=== PATIENT | male | born 1975 | race Caucasian/White ===

== ENCOUNTER 2019-05-19 12:57 | Emergency (ER) | payer SELFPAY ==
[2019-05-19] MEDS ORDERED: ISOVUE-370 76%-LOCM 1 ML ONE (13:49)
[2019-05-19 13:56] LABS: #Basophils 0.1 thou/uL (0.0-0.2); #Eosinphils 0.5 thou/uL (0.0-0.7); #Lymphocytes 2.7 thou/uL (1.20-3.40); #Neutrophils 8.7 thou/uL (1.40-6.50); %Basophils 0.6 % (0.0-1.0); %Eosinophils 3.9 % (0.0-10.0); %Lymphocytes 20.8 % (21.0-51.0); %Monocytes 7.7 % (0.0-10.0); %Neutrophils 67.2 % (42.0-75.0); Hemoglobin 14.8 g/dL (14.0-18.0); Mean Corpuscular HGB CONC 34.1 g/dL (32.0-36.0); Mean Corpuscular Hemoglobin 32.2 pg (27.0-31.0); Mean Corpuscular Volume 94.5 fL (78.0-98.0); Mean Platelet Volume 5.8 fL (7.4-10.4); Platelet Count 328 thou/uL (130-400); RBC Distribution Width 11.2 % (11.5-14.5)
[2019-05-19 14:19] LABS: ALT (SGPT) 14 U/L (8-55); AST (SGOT) 18 U/L (5-34); Albumin 4.1 g/dL (3.5-5.0); Alkaline Phosphatase 81 U/L (40-150); Anion Gap 11 mmol/L (10-20); BUN (Urea Nitrogen) 12 mg/dL (8.9-20.6); Bilirubin, Total 0.6 mg/dL (0.2-1.2); Calc. Creatinine Clearance 0 mL/min (70-130); Calcium 9.4 mg/dL (7.8-10.44); Carbon Dioxide 26 mmol/L (22-29); Chloride 105 mmol/L (98-107); Estimated GFR-MDRD 84; Globulin 2.8 g/dL (2.4-3.5); Glucose 94 mg/dL (70-105); Potassium 4.1 mmol/L (3.5-5.1); Protein, Total 6.9 g/dL (6.0-8.3); Sodium 138 mmol/L (136-145)
[2019-05-19] MEDS ORDERED: Morphine 4 MG/ML VIAL ONE ×2 (14:57→16:39)
[2019-05-19] MEDS ORDERED: Adacel (T-DAP) 0.5 ML SYRINGE ONE (14:58)
[2019-05-19] MEDS ORDERED: Ondansetron PF 4 MG/2 ML Vial ONE ×2 (14:58→16:39)
[2019-05-19] MEDS ORDERED: Clindamycin/D5W 900 mg/50 ml Premix Bag ONE (15:16)
--- NOTE | 2019-05-19 16:00 | CT ---
FACIAL BONE CT SCAN WITH IV CONTRAST: 05/19/19 HISTORY: Pain and swelling. FINDINGS: Marked left sided cheek soft tissue swelling. Fairly extensive scattered sinus mucosal changes includ ing the frontal, ethmoid, and sphenoid sinuses. There is a focal perimaxillary abscess with an associ ated area of maxillary bone destruction overlying some periodontal bone destruction. This abscess anuradha sures approximately 0.3 x 1.0 x 1.2 cm in size with considerable adjacent surrounding asymmetric soft tissue swelling probably representing some associated phlegmon. Bilateral dental caries. No evidence for acute fracture. IMPRESSION: Left perimaxillary small abscess immediately adjacent to the left maxilla with associated small area of bone destruction with an associated area of bone destruction around the adjacent tooth. Somewhat n odular soft tissue swelling immediately adjacent to this which could represent focal phlegmon as well as more diffuse adjacent soft tissue swelling. Sinus mucosal disease. The remainder of the soft tissue and face show no significant acute process. POS: [facility]
== END 2019-05-19 17:26 | disposition home or self-care (01) ==
LOC: ERS 12:57
DX: K03.81 Cracked tooth (principal); K04.7 Periapical abscess without sinus; J45.909 Unspecified asthma, uncomplicated; F17.210 Nicotine dependence, cigarettes, uncomplicated
CPT/HCPCS: 36415; 70487; 80053; 85025; 90471; 90715; 96365; 96375; 96376; J2270; J2405; J3490; Q9966